=== PATIENT | female | born 1965 | race Caucasian/White ===

== ENCOUNTER 2017-03-12 07:36 | Day surgery (SDC) | payer BC ==
[2017-03-11 12:55] VITALS: BMI 22.9
[2017-03-12] MEDS ORDERED: PROPOFOL 20 ML ONE ×2 (07:39)
[2017-03-12] MEDS ORDERED: LIDOCAINE HCL/PF 2% SDV 5ML VIAL ONE (07:45)
[2017-03-12 10:51] VITALS: BP 110/64; PULSE 76; TEMP 97.9
== END 2017-03-12 10:00 | disposition home or self-care (01) ==
LOC: FASU-ENDO 07:36 → EDBD 08:00 → FASU-ENDO 10:00
PROVIDERS: ATTEND Internal Medicine Gastroenterology
PROC: 0DJD8ZZ Inspection of Lower Intestinal Tract, Via Natural or Artificial Opening Endoscopic (ICD-10-PCS; principal; 2017-03-12 08:32)
DX: Z12.11 Encounter for screening for malignant neoplasm of colon (principal); K57.30 Diverticulosis of large intestine without perforation or abscess without bleeding

== ENCOUNTER 2020-06-26 15:53 | Emergency (ER) | payer BC | END 2020-06-26 16:19 | disposition home or self-care (01) | LOC: JVIRT 15:53 | DX: Z03.818 Encounter for observation for suspected exposure to other biological agents ruled out (principal) | CPT/HCPCS: C9803; G2012-GT; U0003 ==